=== PATIENT | male | born 1950 | race Caucasian/White ===

== ENCOUNTER 2020-06-30 18:36 | Emergency (ER) | payer MEDICARE ==
[~2020-06-30 18:36] MED LIST: ASPIRIN81 MG PO; CLOPIDOGREL75 MG PO; CRESTOR20 MG PO; IMDUR 30MG TABL30 MG PO; METOPROLOL SUCC50 MG PO; NITROQUIK SL0.4 MG SL; NORVASC2.5 MG PO; TENORMIN50 MG PO; TRIAMTERENE-HC1 EAC1 PO
[2020-06-30 19:38] LABS: BASOPHIL 0.6 % (0-2); EOSINOPHIL 3.5 % (0-7); HCT 45.6 % (42.0-52.0); HGB 15.7 g/dl (13.2-18.0); MCH 30.3 pg (25.0-31.0); MCHC 34.4 g/dL (32.0-36.0); MCV 87.9 fL (78.0-100.0); MONOCYTE 9.4 % (0-12); NEUTROPHIL 65.2 % (41-80); NRBC 0; PLT 175 K/uL (150-400); RBC 5.19 M/uL (4.70-6.00); RDW 12.6 % (11.5-14.0); WBC 7.1 K/uL (4.0-10.5)
[2020-06-30 19:43] LABS: INR 1.11 (0.9-1.2); PROTHROMBIN TIME 13.6 SECONDS (11.4-13.6); PTT 30.3 SECONDS (22.2-34.7)
[2020-06-30 19:57] LABS: ALBUMIN 3.6 g/dL (3.4-5.0); BILIRUBIN - TOTAL 0.6 mg/dL (0.2-1.0); BUN/CREAT RATIO (CALC) 13.2 RATIO; CREATININE 1.06 mg/dL (0.67-1.17); GLOBULIN (CALCULATION) 3.2 g/dL; POTASSIUM 3.4 mmol/L (3.5-5.1); TOTAL PROTEIN 6.8 g/dL (6.4-8.2)
== END 2020-06-30 23:10 | disposition home or self-care (01) ==
LOC: FER 18:36
PROVIDERS: Emergency Medicine
DX: R07.9 Chest pain, unspecified (principal); I10 Essential (primary) hypertension; Z95.1 Presence of aortocoronary bypass graft; Z95.5 Presence of coronary angioplasty implant and graft; Z79.899 Other long term (current) drug therapy; Z79.82 Long term (current) use of aspirin; Z79.02 Long term (current) use of antithrombotics/antiplatelets
CPT/HCPCS: 36415; 71045; 80053; 84484; 85025; 85610; 85730; 93005